=== PATIENT | male | born 1985 | race Two or more races ===

== ENCOUNTER 2017-06-28 00:37 | Emergency (ER) | payer SELFPAY ==
[~2017-06-28] VITALS: Ht 180.3 cm; Wt 104.3 kg
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
[2017-06-28] MEDS: fentaNYL PF VIAL 100 MCG/2 ML VIAL IV PRN ×3 (01:33→02:16)
[2017-06-28] MEDS ORDERED: DIPHTH,PERTUSS(ACELL),TET TOX 0.5 ML DISP.SYRIN. VAX IM ONE (02:00)
[2017-06-28] MEDS ORDERED: MIDAZOLAM HCL/PF 2 MG/2 ML VIAL. IV ONE ×2 (02:00→02:30)
[2017-06-28] MEDS ORDERED: HYDR-971 PO (02:42)
[2017-06-28] MEDS ORDERED: fentaNYL PF VIAL 100 MCG/2 ML VIAL IV ONE (02:45)
[2017-06-28 02:48] VITALS: BP 115/69
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
--- NOTE | 2017-06-28 07:18 | RAD ---
Left foot, 3 views, 06/28/2017, 2:34 AM: History: Postreduction evaluation Comparison is made to the study of earlier the same day. The little toe dislocation has been reduced. Fractures of the distal third and fourth metatarsals are again noted. They are now in satisfactory position for healing. No additional bony abnormality is detected. IMPRESSION: Satisfactory reduction of the little toe dislocation.
== END 2017-06-28 03:20 | disposition home or self-care (01) ==
LOC: ER 00:37
DX: S93.125A Dislocation of metatarsophalangeal joint of left lesser toe(s), initial encounter (principal); S92.332A Displaced fracture of third metatarsal bone, left foot, initial encounter for closed fracture; S92.342A Displaced fracture of fourth metatarsal bone, left foot, initial encounter for closed fracture; S50.312A Abrasion of left elbow, initial encounter; F10.20 Alcohol dependence, uncomplicated; V28.4XXA Motorcycle driver injured in noncollision transport accident in traffic accident, initial encounter; Y93.I9 Activity, other involving external motion; Y92.410 Unspecified street and highway as the place of occurrence of the external cause; Y99.8 Other external cause status
CPT/HCPCS: 28660; 73630; 90471; 90715; 99285; J2250; J3010; 99152

== ENCOUNTER 2017-08-04 03:17 | Emergency (ER) | payer SELFPAY ==
[~2017-08-04] VITALS: Ht 180.3 cm; Wt 100.2 kg
[~2017-08-04 03:17] MED LIST: HYDR-971 PO
[2017-08-04 03:43] VITALS: BP 127/77
[2017-08-04 04:12] LABS: BASO % 0 % (0-3); EOS % 0 % (0-3); HEMATOCRIT 45.7 % (39.0-53.0); HEMOGLOBIN 15.7 g/dL (13.0-17.5); LYMPH # 0.9 x10^3/uL (1.0-4.8); LYMPH % 9 % (24-48); MEAN CORPUSCULAR HEMOGLOBIN 28 pg (25-35); MEAN CORPUSCULAR HGB CONC 35 g/dL (31-37); MEAN CORPUSCULAR VOLUME 82 fL (79-100); MONO % 3 % (0-9); NEUT % 87 % (31-73); PLATELET COUNT 247 x10^3/uL (140-400); RED BLOOD COUNT 5.56 x10^6/uL (4.30-5.70); WHITE BLOOD COUNT 9.9 x10^3/uL (4.0-11.0)
--- NOTE | 2017-08-04 04:17 | PHYS DOC ---
Past Medical History Past Medical History: Other Additional Past Medical Histor: heart murmur Past Surgical History: No Surgical History Alcohol Use: Heavy Drug Use: None Adult General Chief Complaint Chief Complaint: ABDOMINAL PAIN HPI HPI Patient is a 32 year old M who presents with epigastric pain with nausea/ vomiting/diarrhea since 4 PM this afternoon. Patient states the pain is gotten worse and kept him up all night therefore sent to come the emergency room for further evaluation and management. Patient states his dad had pain similar and was gallbladder. Patient denies any lower abdominal pain or dysuria. Patient denies any previous surgeries on his abdomen. Patient states he's been unable to eat since this pain started at 4 PM. Patient denies any chest pain or shortness of breath. Patient has no other complaints. Review of Systems Review of Systems GEN: Denies fevers, chills, sweats HEENT: Denies blurred vision, sore throat CV: Denies chest pain RESP: Denies shortness of air, cough GI: Epigastric pain with nausea/vomiting/diarrhea NEURO: Denies confusion, dizziness MSK: Denies weakness, joint pain/swelling Current Medications Current Medications Current Medications Medications (Trade) Dose Ordered Sig/Antonella Start Time Stop Time Status Last Admin Dose Admin Ondansetron HCl (Zofran) 4 mg 1X ONCE 08/04/17 04:30 08/04/17 04:31 DC 08/04/17 04:05 4 MG Sodium Chloride 1,000 ml @ 1,000 mls/hr 1X ONCE 08/04/17 04:30 08/04/17 05:29 DC 08/04/17 04:03 1,000 MLS/HR Allergies Allergies Allergies Coded Allergies Type Severity Reaction Last Updated Verified No Known Drug Allergies 11/20/15 No Physical Exam Physical Exam GEN.: No apparent distress. Alert and oriented. HEENT: Head is normocephalic, atraumatic NECK: Supple. LUNGS: CTAB. HEART: RRR, S1, S2 present. Peripheral pulses intact ABDOMEN: Soft, tenderness palpation over the epigastric area with no rebound tenderness, no guarding, no abdominal distention. Positive bowel sounds. EXTREMITIES: Without any cyanosis. NEUROLOGIC: Normal speech, normal tone PSYCHIATRIC: Normal affect, normal mood. SKIN: No ulcerations Current Patient Data Vital Signs Vital Signs Date Time Temp Pulse Resp B/P (MAP) Pulse Ox O2 Delivery O2 Flow Rate FiO2 08/04/17 03:43 98.0 95 18 96 Room Air 98.0 Lab Values Laboratory Tests Test 08/04/17 04:00 08/04/17 05:05 White Blood Count 9.9 x10^3/uL (4.0-11.0) Red Blood Count 5.56 x10^6/uL (4.30-5.70) Hemoglobin 15.7 g/dL (13.0-17.5) Hematocrit 45.7 % (39.0-53.0) Mean Corpuscular Volume 82 fL (79-100) Mean Corpuscular Hemoglobin 28 pg (25-35) Mean Corpuscular Hemoglobin Concent 35 g/dL (31-37) Red Cell Distribution Width 14.0 % (11.5-14.5) Platelet Count 247 x10^3/uL (140-400) Neutrophils (%) (Auto) 87 % (31-73) H Lymphocytes (%) (Auto) 9 % (24-48) L Monocytes (%) (Auto) 3 % (0-9) Eosinophils (%) (Auto) 0 % (0-3) Basophils (%) (Auto) 0 % (0-3) Neutrophils # (Auto) 8.7 x10^3uL (1.8-7.7) H Lymphocytes # (Auto) 0.9 x10^3/uL (1.0-4.8) L Monocytes # (Auto) 0.3 x10^3/uL (0.0-1.1) Eosinophils # (Auto) 0.0 x10^3/uL (0.0-0.7) Basophils # (Auto) 0.0 x10^3/uL (0.0-0.2) Platelet Estimate Pending Sodium Level 139 mmol/L (136-145) Potassium Level 3.8 mmol/L (3.5-5.1) Chloride Level 102 mmol/L (98-107) Carbon Dioxide Level 26 mmol/L (21-32) Anion Gap 11 (6-14) Blood Urea Nitrogen 12 mg/dL (8-26) Creatinine 0.8 mg/dL (0.7-1.3) Estimated GFR (Cockcroft-Gault) 112.8 BUN/Creatinine Ratio 15 (6-20) Glucose Level 100 mg/dL (70-99) H Calcium Level 9.2 mg/dL (8.5-10.1) Total Bilirubin 1.1 mg/dL (0.2-1.0) H Aspartate Amino Transferase (AST) 18 U/L (15-37) Alanine Aminotransferase (ALT) 34 U/L (16-63) Alkaline Phosphatase 44 U/L (46-116) L Total Protein 7.2 g/dL (6.4-8.2) Albumin 3.7 g/dL (3.4-5.0) Albumin/Globulin Ratio 1.1 (1.0-1.7) Lipase 140 U/L (73-393) Urine Collection Type Unknown Urine Color Yellow Urine Clarity Clear Urine pH 5.5 Urine Specific [place] 1.015 Urine Protein Negative mg/dL (NEG-TRACE) Urine Glucose (UA) Negative mg/dL (NEG) Urine Ketones (Stick) Negative mg/dL (NEG) Urine Blood Negative (NEG) Urine Nitrite Negative (NEG) Urine Bilirubin Negative (NEG) Urine Urobilinogen Dipstick 0.2 mg/dL (0.2 mg/dL) Urine Leukocyte Esterase Negative (NEG) Urine RBC Occ /HPF (0-2) Urine WBC Occ /HPF (0-4) Urine Squamous Epithelial Cells Few /LPF Urine Bacteria 0 /HPF (0-FEW) Urine Mucus Marked /LPF Laboratory Tests 08/04/17 04:00 Laboratory Tests 08/04/17 04:00 EKG EKG [] Radiology/Procedures Radiology/Procedures Ultrasound right upper quadrant: Fatty liver no acute cholecystitis[] Course & Med Decision Making Course & Med Decision Making Pertinent Labs and Imaging studies reviewed. (See chart for details) ED course: Patient was seen and examined emergency room abdominal workup along with a CT scan abdomen pelvis with contrast was ordered 0546: Updated patient on ultrasound findings and lab work. Patient's feeling much better. Patient stable for discharge. Recommended short-term follow-up with his PCP in one to 2 days. MDM: After reviewing the chart, CC/HPI/PMH, physical exam, [lab results], [ radiological results], I do not believe the patient has intra-abdominal emergency warranting further workup and/or admission at this time. I do not believe the patient has acute cholecystitis. Patient is stable for discharge. Additional verbal discharge instructions were provided to the patient and that if symptoms get worse or any new symptoms arise that are worrisome to the patient he is to return to the emergency room immediately [] Dragon Disclaimer Dragon Disclaimer This electronic medical record was generated, in whole or in part, using a voice recognition dictation system. Departure Departure Impression: Primary Impression: Abdominal pain Additional Impression: Nausea and vomiting Disposition: HOME, SELF-CARE Condition: IMPROVED Referrals: NO PCP (PCP) Patient Instructions: Abdominal Pain (Nonspecific) Additional Instructions: Please follow-up with your family doctor in the next one to 2 days and return if symptoms increase Problem Qualifiers RONA HECK DO Aug 04, 2017 04:17
[2017-08-04] MEDS ORDERED: IV NORMAL SALINE 1000ML BAG 1,000 ML IV ONE (04:30)
[2017-08-04] MEDS ORDERED: ONDANSETRON PF 4 MG/2 ML VIAL. IV ONE (04:30)
[2017-08-04 04:40] LABS: CALCIUM 9.2 mg/dL (8.5-10.1); CREATININE 0.8 mg/dL (0.7-1.3); GFR 112.8; POTASSIUM 3.8 mmol/L (3.5-5.1)
[2017-08-04 04:46] LABS: ALBUMIN 3.7 g/dL (3.4-5.0); ALBUMIN/GLOBULIN RATIO 1.1 (1.0-1.7); TOTAL BILIRUBIN 1.1 mg/dL (0.2-1.0); TOTAL PROTEIN 7.2 g/dL (6.4-8.2)
[2017-08-04 05:19] LABS: BILIRUBIN,URINE NEGATIVE (NEG); GLUCOSE,URINE NEGATIVE (NEG); NITRITE,URINE NEGATIVE (NEG); PH,URINE 5.5; PROTEIN,URINE NEGATIVE (NEG-TRACE); UROBILINOGEN,URINE 0.2 mg/dL (0.2 mg/dL)
--- NOTE | 2017-08-04 05:29 | RAD ---
Limited abdomen ultrasound HISTORY: Epigastric abdominal pain FINDINGS: Bowel gas shadowing limits visualization of the entirety of the pancreas and the majority of the abdominal aorta and IVC. Increased liver echogenicity likely fatty. No liver masses documented. Normal directional blood flow of the portal vein. No gallstones or inflammatory changes of the gallbladder. No biliary ductal dilation the common bile duct has a diameter 4 mm. Right renal length 12.3 cm, no evidence of right renal mass or hydronephrosis, limited visualization of the right renal lower pole due to bowel gas shadowing. Spleen and left kidney were not evaluated. IMPRESSION: Probable fatty liver. Otherwise negative exam. Electronically signed by: Justice Holly MD (08/04/2017 5:26 AM) [id number]
[2017-08-04 05:41] LABS: BACTERIA,URINE 0 /HPF (0-FEW); RBC,URINE OCC /HPF (0-2); SQUAMOUS EPITHELIAL CELL,UR FEW /LPF; WBC,URINE OCC /HPF (0-4)
[2017-08-04] MEDS ORDERED: LIDO:MAALOX:DONNATAL 1:1:1 15 ML SINGLE DOSE ONE (06:01)
[2017-08-04] MEDS ORDERED: LIDO:MAALOX:DONNATAL 1:1:1 15 ML SINGLE DOSE SWSW ONE (06:30)
[2017-08-04 09:38] LABS: % EOS 1 % (0-5)
[2017-08-04 09:39] LABS: PLT ESTIMATE ADEQUATE (ADEQUATE)
== END 2017-08-04 06:10 | disposition home or self-care (01) ==
LOC: ER 03:17
DX: R10.13 Epigastric pain (principal); R11.2 Nausea with vomiting, unspecified; R19.7 Diarrhea, unspecified
CPT/HCPCS: 36415; 76705; 80053; 81001; 83690; 85007; 85025; 96361; 96374; 99285; J2405; J7030